=== PATIENT | male | born 1965 | race Caucasian/White ===

== ENCOUNTER 2017-06-30 08:47 | Day surgery (SDC) | payer BC ==
[2017-06-30] MEDS ORDERED: Midazolam 1 MG/ML 2 ML SDV ONE (09:43)
[2017-06-30] MEDS ORDERED: fentaNYL 100 MCG/2 ML SDV ONE (09:43)
[2017-06-30] MEDS ORDERED: Propofol 200 MG/20 ML SDV ONE ×2 (09:43→11:16)
[2017-06-30] MEDS ORDERED: Dextrose 5%-Lactated Ringers 1,000 ML IV SCH (09:45)
[2017-06-30] MEDS ORDERED: Ondansetron 4 MG/2 ML SDV ONE (11:10)
[2017-06-30 12:37] VITALS: BP 113/74
--- NOTE | 2017-07-04 13:13 | OR ---
DATE OF PROCEDURE: 06/30/2017 PREOPERATIVE DIAGNOSIS: Indication for screening colonoscopy. POSTOPERATIVE DIAGNOSIS: Normal screening colonoscopy. OPERATIVE PROCEDURE: Flexible colonoscopy. ANESTHESIA: IV sedation. INDICATION FOR PROCEDURE: A 52-year-old male presenting for a screening colonoscopy. He has no family history of colon carcinoma and no personal history of polyps or other colonic disease. Plan is to proceed with a colonoscopy with biopsies and/or polypectomy as indicated. Potential risks including bleeding and perforation were discussed, and the patient wishes to proceed. DETAILS OF PROCEDURE: The patient was taken to the operating room and placed in a left lateral decubitus position. IV sedation was administered, after which the initial digital rectal exam was performed and was unremarkable. Colonoscope was then passed into the rectum with retroflexion revealing uncomplicated hemorrhoidal columns. The scope was then eventually passed to the level of the cecum. The prep was fairly good. There were some areas of liquid and pieces of solid stool which obscured quite small areas of the mucosal surface. To that level, no abnormalities were noted and there were no diverticula, no areas of colitis, no polyps or other signs of neoplasia. The scope was then withdrawn, the above findings were reconfirmed, and the procedure was then concluded. There were no evident complications. Recommendation would be to repeat the colonoscopy in 10 years. Duke Ross MD /[id number]
== END 2017-06-30 12:55 | disposition home or self-care (01) ==
LOC: JP.SDS 08:47
PROVIDERS: ATTEND Surgery
DX: Z12.11 Encounter for screening for malignant neoplasm of colon (principal); Z88.0 Allergy status to penicillin
CPT/HCPCS: 45378; J2250; J2405; J2704; J3010; J7042